=== PATIENT | male | born 1945 | race Caucasian/White ===

== ENCOUNTER 2024-12-26 10:21 | Emergency (ER) | payer OTHER, MEDICARE ==
[~2024-12-26] VITALS: Ht 177.8 cm; Wt 84.8 kg
[2024-12-26 11:55] VITALS: BP 123/87
== END 2024-12-26 11:56 | disposition home or self-care (01) ==
LOC: ED 10:21
DX: M54.50 Low back pain, unspecified (principal); V49.40XA Driver injured in collision with unspecified motor vehicles in traffic accident, initial encounter; K42.9 Umbilical hernia without obstruction or gangrene; K40.20 Bilateral inguinal hernia, without obstruction or gangrene, not specified as recurrent
CPT/HCPCS: 72131; 72192; 99283-25